=== PATIENT | male | born 1965 | race Two or more races ===

== ENCOUNTER 2022-04-12 09:02 | Emergency (ER) | payer OTHER ==
[~2022-04-12] VITALS: Ht 175.3 cm; Wt 106.6 kg
== END 2022-04-12 10:07 | disposition home or self-care (01) ==
LOC: ED 09:02
DX: S22.41XA Multiple fractures of ribs, right side, initial encounter for closed fracture (principal); V43.62XA Car passenger injured in collision with other type car in traffic accident, initial encounter
CPT/HCPCS: 71101; 99284-25

== ENCOUNTER 2023-03-01 11:10 | Observation (INO) | payer OTHER ==
[~2023-03-01] VITALS: Ht 175.3 cm; Wt 95.4 kg
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
[2023-03-01 11:58] LABS: BASOPHILS 0.3 % (0-2); EOSINOPHILS 2.7 % (0-6); HEMATOCRIT 46.8 % (35.0-50.0); HEMOGLOBIN 15.7 g/dL (12.0-18.0); LYMPHOCYTES 24.7 % (24-44); MCH 29.5 (27-36); MCHC 33.6 g/dl (30-36); MCV 87.9 fl (81-99); MONOCYTES 7.9 % (0-12); NEUTROPHILS 64.4 % (39-80); PLATELET COUNT 185 K/uL (140-440); RBC 5.32 M/ul (4.3-5.7); RDW 13.4 (10.5-15.0)
[2023-03-01 12:08] LABS: INR 1.02 (0.80-1.30)
[2023-03-01 12:10] LABS: PARTIAL THROMBOPLASTIN TIME 25.8 Sec (22.9-41.3)
[2023-03-01 12:16] LABS: ALBUMIN 3.6 g/dL (3.4-5.0); ALBUMIN/GLOBULIN RATIO 1.13 (1.1-2.4); BILIRUBIN, TOTAL 1.3 ng/dL (0.2-1.0); BUN/CREATININE RATIO 22.75 (6.0-28.6); CALCIUM 8.9 mg/dL (8.5-10.1); CREATININE, SERUM 1.45 mg/dL (0.70-1.30); PROTEIN, TOTAL 6.8 g/dL (6.4-8.2)
[2023-03-01 14:15] VITALS: BP 153/66
--- NOTE | 2023-03-01 14:15 | NUR ---
Patient transported to [facility] room 123. Pt able to transfer self to bed independently, no neuro deficits outwardly noted. Personal belongings categorized. VSS. A+O. IV flushed WNL. Tele in place. Pt on regular diet- given ice water and sandwich box. No issues noted with swallowing. Primary RN notified of admission data. Pt oriented to call light and has no needs at this time.
--- NOTE | 2023-03-01 15:02 | NUR ---
SPOKE TO PATIENT ABOUT HIS DISCHARGE PLAN. PATIENT LIVES WTH HIS MOTHER AND PLANS TO GO BACK TO HIS MOTHER'S HOUSE. PATIENT CAN DO HIS OWN ADLS. PATIENT DRIVES A CAR. PATIENT'S MOTHER PROVIDES HOUSING AND FOOD. PATIENT DOES HAVE A 26 YR. OLD DAUGHTER. PATIENT DOES NOT USE DME. PATIENT DOES NOT HAVE A PCP AND DOES NOT TAKE ANY MEDICATIONS BECAUSE OF THIS. PATIENT DID TAKE B/P MEDS IN THE PAST. ADMITTING FILLED OUT THE PAPERS TO GET [facility]. PATIENT AGREES THAT PHYSICIAN AIDE WILL TRY TO GET A PCP FOR THE PATIENT. PATIENT STATES THAT HE SMOKES A LITTLE POT TO HELP WITH PAIN ISSUES.
--- NOTE | 2023-03-01 15:12 | NUR ---
PHYSICAL THERAPY IN ROOM WORKING WITH PT.
--- NOTE | 2023-03-01 16:33 | NUR ---
PT RESTING IN BED, ORIENTED TO ROOM AND CALL LIGHT. DENIES PAIN OR DISCOMFORT AT THIS TIME. NO REQUESTS AT THIS TIME.
--- NOTE | 2023-03-01 17:16 | NUR ---
Pt's name added to CM list for new PCP and shared to the clinic staff as requested. Chart copied and scanned to Luis Enrique De Leon, Aleja Jacobsen, Unique Aguirre at the clinic to find a pcp for this pt.
--- NOTE | 2023-03-01 18:27 | NUR ---
PT RESTS IN BED. REPORTS THE NUMBNESS IN HIS RIGHT ARM AND RIGHT LEG HAS RESOLVED BUT THAT HE STILL HAS TINGLING. PT REPORTS THE TINGLING WAS FROM HIS FINGERS TO HIS FOREARM AND IS NOW ONLY IN THE TIPS OF HIS FINERS. PT REPORTS TINGLING IN HIS LEG STARTED FROM HIS TOES TO HIS CALF BUT IS NOW ONLY IN HIS TOES. PT TOLERATING HIS DIET WELL, WATCHES TV, USES CALL LIGHT APPROPRIATELY. NO REQUESTS AT THIS TIME.
[2023-03-01 18:43] VITALS: BP 181/97
--- NOTE | 2023-03-01 19:19 | NUR ---
SHIFT REPORT RECEIVED FROM KAE [place]ACH AND ONEYDA AT BEDSIDE, pt AWAKE AND RESTING IN BED. ON RA, RR EVEN AND UNLABORED. NO DISTRESS NOTED, FRESH WATER PROVIDED PER pt REQUEST. pt INDEPENDENT IN ROOM PER REPORT. TELE#[address], SHOWS SINUS RHYTHM. CALL LIGHT IN REACH, BOARD UPDATED.
--- NOTE | 2023-03-01 21:30 | NUR ---
pt AWAKE AND RESTING IN BED, ON RA. RR EVEN AND UNLABORED. NO DISTRESS NOTED, CALL LIGHT IN REACH AND pt DENEIS NEEDS OR CONCERNS.
[2023-03-01 22:00] VITALS: BP 188/99
[2023-03-01 22:42] VITALS: BP 192/106
--- NOTE | 2023-03-01 22:46 | NUR ---
pt's BP ELEVATED, RESULT OF 188/99. NO PARAMETERS OF WHEN TO GIVE PRN HYDRALAZINE. CALL MADE TO DR REID. TELEPHONE ORDER READ BACK TO GIVE THE ALREADY ORDERED HYDRALAZINE WHEN SBP > 160. OKAY TO GIVE NOW PER DR REID. pt's BUN AND CREATININE ALSO ELEVATED, DISCUSSED IF MD WANTED BOLUS OR IV FLUIDS, TELEPHONE ORDER READ BACK FOR 500 MLS BOLUS LR TO INFUSE OVER ONE HR. NIH ASSESSMENT COMPLETED, SEE NURSING INTERVENTION. pt DENIES BLURRED VISION, SPEECH CLEAR. REPORTS NUMBNESS TO RIGHT BALL OF FOOT AND RIGHT 3 MIDDLE FINGERS IMPROVED, STATING, "IT'S A LOT BETTER THAN IT WAS BEFORE". NO ADDITIONAL NEEDS, CALL LIGHT IN REACH. COMMUNITY SPECIALISTMEGAN SANTANA UPDATED.
--- NOTE | 2023-03-01 23:24 | NUR ---
ROUNDED ON pt, pt AWAKE AND RESTING IN BED. IV SITE WNL. NO NEEDS OR CONCERNS VERBALIZED BY pt, CALL LIGHT AND PERSONAL BELONGINGS IN REACH.
[2023-03-02] VITALS (8 sets, daily range): BP systolic 128–205; BP diastolic 70–125
--- NOTE | 2023-03-02 00:14 | NUR ---
ROUNDED ON pt, pt RESTING IN BED WITH EYES CLOSED. ON RA, RR EVEN AND UNLABORED. NO DISTRESS NOTED, CALL LIGHT IN REACH.
--- NOTE | 2023-03-02 02:40 | NUR ---
IN ROOM TO COLLECT VS, SBP REMAINS ELEVATED BUT TRENDING DOWN. PRN HYDRALAZINE GIVEN-SEE EMAR. IV SITE WNL, REMAINS SALINE LOCKED. NO ACUTE CHANGES TO NEURO ASSESSMENT, EQUAL STRENGTH NOTED TO BUE AND BLE. NO CAHNGES TO NUMBNESS IN RIGHT FINGERTIPS. NO ADDITIONAL NEEDS, CALL LIGHT IN REACH. pt DENIES NEED TO VOID.
--- NOTE | 2023-03-02 05:18 | NUR ---
in room to fix tele lead, lab also in room for am lab draws. no needs or concerns verbalized. call light in reach.
[2023-03-02 05:23] LABS: BASOPHILS 0.5 % (0-2); HEMATOCRIT 46.5 % (35.0-50.0); HEMOGLOBIN 15.7 g/dL (12.0-18.0); LYMPHOCYTES 26.4 % (24-44); MCH 29.1 (27-36); MCHC 33.7 g/dl (30-36); MCV 86.4 fl (81-99); MONOCYTES 7.3 % (0-12); NEUTROPHILS 62.8 % (39-80); PLATELET COUNT 187 K/uL (140-440); RBC 5.39 M/ul (4.3-5.7); RDW 13.1 (10.5-15.0)
[2023-03-02 05:42] LABS: ALBUMIN 3.4 g/dL (3.4-5.0); ALBUMIN/GLOBULIN RATIO 1.13 (1.1-2.4); ANION GAP 13.7 (7-21); BILIRUBIN, TOTAL 1.6 ng/dL (0.2-1.0); BUN/CREATININE RATIO 18.42 (6.0-28.6); CALCIUM 8.7 mg/dL (8.5-10.1); CHOLESTEROL/HDL RATIO 5.8; CREATININE, SERUM 1.14 mg/dL (0.70-1.30); MAGNESIUM 1.8 mg/dL (1.8-2.4); PHOSPHORUS, INORGANIC 2.9 mg/dL (2.5-4.9); POTASSIUM 3.7 mmol/L (3.5-5.1); PROTEIN, TOTAL 6.4 g/dL (6.4-8.2)
--- NOTE | 2023-03-02 06:43 | NUR ---
DR REID MADE AWARE OF MANUAL BP RESULT OF 198/96, AT RN STATION. VERBAL ORDER TO GIVE PRN ORDERED HYDRALAZINE AND OKAY TO GIVE ORDERED AM LISINOPRIL NOW, READ BACK TO CONFIRM. PRN HYDRALAZINE GIVEN-SEE EMAR. IV SITE WNL, SALINE LOCKED. CALL LIGHT INR EACH.
--- NOTE | 2023-03-02 07:10 | NUR ---
REPORT RECEIVED FROM MEGAN MCKEON. MEGAN MCKEON AND THIS RN IN ROOM. MEGAN MCKEON ADMINISTERING MEDICATIONS. PT DENIES ANY NEEDS FROM THIS RN AT THIS TIME. CALL LIGHT IN REACH.
--- NOTE | 2023-03-02 08:02 | EKG ---
[facility] [address] [place] [address] Signed Normal sinus rhythm Minimal voltage criteria for LVH, may be normal variant ( R in aVL ) Nonspecific ST abnormality Abnormal ECG No previous ECGs available Confirmed by GIULIA REID MD ([id number]) on 03/02/2023 8:02:10 AM Electronically Signed By: GIULIA REID 03/02/23 0802 PATIENT NAME: MARLA PÉREZ Electrocardiogram DATE OF : 61 PHYSICIAN: GIULIA REID REPORT #: [id number] REPORT IS CONFIDENTIAL AND NOT TO BE RELEASED WITHOUT AUTHORIZATION
--- NOTE | 2023-03-02 08:56 | NUR ---
IN TO ADMINISTER MEDICATIONS, SEE MAR. PT TAKES PO MEDICATIONS WITH NO ISSUES. ASSESSMENT COMPLETE. LUNG SOUNDS RHONCHI THROUGHOUT ALL LOBES. BOWEL TONES ACTIVE. PT REPORTING HEADACHE 09/03. PRN PAIN MEDICATION ADMINISTERED, SEE MAR. PT A&O TO ALL. NO ARM OR LEG DRIFT NOTED. PT REPORTS TINGLING IN RIGHT FINGERTIPS AND STATES "IT IS LIKE IF YOU WERE TO HIT IT WITH A HAMMER." PT REPORTS "I HAVE NOT NOTICED ANY TINGLING IN MY RIGHT LEG SINCE LAST NIGHT." PT DENIES ANY OTHER NEEDS AT THIS TIME. CALL LIGHT IN REACH.
--- NOTE | 2023-03-02 09:05 | NUR ---
THIS RN TALKED TO DR. REID REGARDING PTs BP OF 204/120. PER DR. REID GIVE 0.1 OF CLONIDINE PO NOW. VERIFIED WITH READBACK.
--- NOTE | 2023-03-02 09:40 | NUR ---
PT WAS ON PHONE. DID NOT INTERRUPT. SAID SILENT PRAYER FOR HEALING.
--- NOTE | 2023-03-02 10:23 | NUR ---
IN TO ROUND ON PT. PT UP IN BED. BP COMPLETE. I&Os COMPLETE. PT REPORTING PAIN IS "GONE." PT DENIES ANY OTHER NEEDS AT THIS TIME. CALL LIGHT IN REACH.
--- NOTE | 2023-03-02 10:28 | NUR ---
THIS RN CALLED DR. REID REGARDING PTs BP OF 205/[address] REID GIVE COREG 25MG PO BID AND GIVE FIRST DOSE NOW. VERIFIED WITH READBACK.
--- NOTE | 2023-03-02 10:36 | NUR ---
IN TO ADMINISTER MEDICATION, SEE MAR. PT TAKES PO MEDICATION WITH NO ISSUES. EDUCATION PROVIDED REGARDING MEDICATION. PT DENIES ANY OTHER NEEDS AT THIS TIME. CALL LIGHT IN REACH.
--- NOTE | 2023-03-02 11:11 | NUR ---
SPOKE TO PATIENT ABOUT THE DISCHARGE PLAN. CASE MANAGEMENT IS STILL WORKING ON GETTING A PCP FOR THE PATIENT. THE [facility] HAS BEEN SENT A REQUEST FOR THIS SERVICE. THE CLINIC WILL CALL THE PATIENT.
--- NOTE | 2023-03-02 11:43 | NUR ---
THIS RN TALKED TO DR. REID REGARDING PTs BP OF 165/99. PER DR. REID THAT IS "GOOD." NO NEW ORDERS AT THIS TIME.
--- NOTE | 2023-03-02 12:11 | NUR ---
IN TO COMPLETE MRI FORM WITH PT. PT DENIES ANY OTHER NEEDS AT THIS TIME. CALL LIGHT IN REACH.
--- NOTE | 2023-03-02 12:44 | NUR ---
IN TO ROUND ON PT AND UPDATE PT ON MRI. INFORMED PT THAT MRI WILL NOT HAPPEN UNTIL TOMORROW. DIETARY CALLED TO BRING PT A LUNCH TRAY. WATER PROVIDED FOR PT. PT DENIES ANY OTHER NEEDS AT THIS TIME. CALL LIGHT IN REACH.
--- NOTE | 2023-03-02 15:33 | NUR ---
IN TO ROUND ON PT. PT RESTING IN BED ON RIGHT SIDE. PT AWAKENS WHEN ADDRESSED. ASSESSMENT COMPLETE. LUNG SOUNDS RHONCHI IN RUL AND RLL. CLEAR IN JANELL AND LLL. BOWEL TONES ACTIVE. PT DENIES PAIN AT THIS TIME. PT A&O TO ALL. PT DENIES ANY NEEDS AT THIS TIME. CALL LIGHT IN REACH.
--- NOTE | 2023-03-02 17:10 | NUR ---
IN TO ROUND ON PT. PT LAYING IN BED ON LEFT SIDE, SEMI-FOWLERS. EYES CLOSED. RR EVEN AND UNLABORED. NO NEEDS IDENTIFIED AT THIS TIME. CALL LIGHT IN REACH.
--- NOTE | 2023-03-02 18:03 | NUR ---
IN TO ADMINISTER PRN PAIN MEDICATION PT REPORTING HEADACHE PAIN /. PRN PAIN MEDICAITON ADMINISTERED, SEE MAR. URINAL EMPTIED. URINE NOTED TO BE CONCENTRATED. INFORMED PT WE WILL HAVE TO BLADDERSCAN PT PT HAS NOT HAD MUCH URINE OUTPUT DURING THIS SHIFT. PT AGREEABLE. PT DENIES ANY OTHER NEEDS AT THIS TIME. CALL LIGHT IN REACH.
--- NOTE | 2023-03-02 18:37 | NUR ---
THIS RN TALKED TO DR. REID REGARDING PTs URINE OUTPUT. PER DR. REID GIVE PT 1L BOLUS OF NS NOW. VERIFIED WITH READBACK.
--- NOTE | 2023-03-02 18:52 | NUR ---
IN TO ADMINISTER BOLUS, SEE MAR. IV FLUSHES WNL. PT A&O TO ALL. PT DENIES NUMBNESS AND TINGLING AT THIS TIME. IS PROVIDED AND EDUCATION PROVIDED. PT USES IS X3. PT DENIES ANY NEEDS AT THIS TIME. CALL LIGHT IN REACH.
--- NOTE | 2023-03-02 19:07 | NUR ---
SHIFT REPORT RECEIVED FROM DAYSHIFT MEGAN AMBROSE AT BEDSIDE, pt AWAKE AND RESTING IN BED, IV FLUIDS INFUSING DIRECTED-IV SITE WNL. pt DENEIS NEEDS OR CONCERNS, CALL LIGHT IN REACH.
--- NOTE | 2023-03-02 19:55 | NUR ---
IV PUMP ALARMING, IV BOLUS COMPLETE. PUMP CLEARED, IV SITE SALINE LOCKED. WARM BLANKET PROVIDED. CALL LIGHT IN REACH.
--- NOTE | 2023-03-02 20:40 | NUR ---
assessment complete, scheduled medication given-see emar. vss, bp improving, tele#[address] apical hr 60. current iv to be dc'd d/t early signs of infiltration. primer charger to place new iv. cms intact, pt reports numbness to right fingertips/ball of right foot resolved earlier on dayshift. pt a/ox4, independent in room. no additional needs or concerns, call light in reach. pt denies need to void, instructed to use call light once he voids, pt verbalizes understanding.
--- NOTE | 2023-03-02 21:16 | NUR ---
PATIENTS IV DC'D IN LEFT AC FOR INFILTRATION. NE IV PLACED IN RFA. PATIENT TOLERATED ACITVITY WELL. PATIENTS IV SL PER ORDER. PATIENT DENIES ANY NEEDS. CALL LIGHT IN REACH.
--- NOTE | 2023-03-02 22:14 | NUR ---
pt AWAKE AND RESTING IN BED, WATCHING TV. NO DISTRESS NOTED. CALL LIGHT IN REACH, ON RA. RR EVEN AND UNLABORED. TELE#[address], HR 60-SINUS RHYTHM. NO NEEDS OR CONCERNS VERBALIZED WHEN ASKED, CALL LIGHT IN REACH.
--- NOTE | 2023-03-02 23:25 | NUR ---
pt awake and resting in bed, preparing to go to bed. urinal emptied, 150mls output noted. pt deneis needs or concerns. call light in reach.
[2023-03-03] VITALS (7 sets, daily range): BP systolic 122–186; BP diastolic 62–93
--- NOTE | 2023-03-03 01:29 | NUR ---
IN ROOM TO COLLECT VS, VSS. BP CONTINUES TO IMPROVE AND REMAINS WNL. TELE#[address], HR 58-SINUS JUANPABLO. NO ACUTE CHANGES W/ ASSESSMENT. pt DROWSY, AWOKE EASILY TO VOICE. CMS REMAINS INTACT. IV SITE WNL, SALINE LOCKED.
--- NOTE | 2023-03-03 03:01 | NUR ---
pt DENIES NEED TO VOID, HAS ONLY VOIDED 100MLS SINCE BOLUS THAT FINISHED EARLIER IN SHIFT. pt BLADDER SCANNED FOR 79MLS, pt NOW OOB AND ATTEMTPTING TO VOID. WILL MONITOR. pt MADE NPO AT THIS TIME, PER SHIFT REPORT- pt HAS TO BE NPO FOR A MINIMIUM OF 4HRS BEFORE MRI AND PER SHIFT REPORT MRI IS TO BE DONE IN THE MORNING EITHER AT 1000 OR 1300 DEPENDING ON IMAGING SCHEDULE.
--- NOTE | 2023-03-03 05:55 | NUR ---
dr norton made aware of pt's urine output for the shift-250mls and most recent bladder scan of 73mls. no crackles noted w/ lung auscultation, no edema noted. pt yajaira sob. telephone order read back for am cbc, cmp and 1 liter ns bolus to infuse over 4hrs. clinic charge nursearlette amaro also updated.
--- NOTE | 2023-03-03 06:10 | NUR ---
iv fluid bolus infusing as directed, iv site wnl. pt up and voided another 100mls. call light in reach. pt a/ox4, cms remains intact.
[2023-03-03 06:16] LABS: BASOPHILS 0.6 % (0-2); EOSINOPHILS 2.8 % (0-6); HEMATOCRIT 43.9 % (35.0-50.0); HEMOGLOBIN 14.6 g/dL (12.0-18.0); LYMPHOCYTES 30.4 % (24-44); MCH 29.3 (27-36); MCHC 33.2 g/dl (30-36); MCV 88.1 fl (81-99); NEUTROPHILS 58.2 % (39-80); PLATELET COUNT 178 K/uL (140-440); RBC 4.98 M/ul (4.3-5.7); RDW 13.6 (10.5-15.0)
[2023-03-03 06:29] LABS: ALBUMIN 3.1 g/dL (3.4-5.0); ALBUMIN/GLOBULIN RATIO 1.11 (1.1-2.4); ANION GAP 12.8 (7-21); BILIRUBIN, TOTAL 1.5 ng/dL (0.2-1.0); BUN/CREATININE RATIO 21.42 (6.0-28.6); CALCIUM 8.5 mg/dL (8.5-10.1); CREATININE, SERUM 1.4 mg/dL (0.70-1.30); POTASSIUM 3.8 mmol/L (3.5-5.1); PROTEIN, TOTAL 5.9 g/dL (6.4-8.2)
--- NOTE | 2023-03-03 07:20 | NUR ---
REPORT REVEIVED FROM MEGAN MCKEON. PT RESPONDS WHEN ADDRESSED. PT DENIES ANY NEEDS AT THIS TIME. CALL LIGHT IN REACH.
--- NOTE | 2023-03-03 08:01 | NUR ---
New notes from chart faxed to Physician clinic. Asked if they have had success finding a pcp for this pt.
--- NOTE | 2023-03-03 08:01 | NUR ---
IN TO ADMINISTER MEDICATION WITH SIP OF WATER. PT TAKES PO MEDICATIONS WITH NO ISSUES. ASSESSMENT COMPLETE. PT DENIES PAIN AT THIS TIME. LUNG SOUNDS RHONCHI THROUGHOUT ALL LOBES THAT CLEAR WITH COUGH. BOWEL TONES ACTIVE. NO ARM OR LEG DRIFT NOTED. PT A&O TO ALL. PT DENIES NUMBNESS OR TINGLING ANY ALL EXTREMITIES. IV FLUSHES WNL AND BLOOD RETURN NOTED. IV INFUSING WNL. PT DENIES ANY OTHER NEEDS AT THIS TIME. CALL LIGHT IN REACH.
--- NOTE | 2023-03-03 10:08 | NUR ---
PT OUT OF ROOM FOR MRI.
--- NOTE | 2023-03-03 10:28 | NUR ---
PT BACK FROM MRI. INFORMED PT WE NEED A CLEAN CATCH UA. EDUCATION PROVIDED. PT UP TO RESTROOM TO ATTEMPT TO VOID. PT INFORMED TO USE CALL LIGHT WHEN FINISHED. PT VERBALIZES UNDERSTANDING. PT DENIES ANY OTHER NEEDS AT THIS TIME.
--- NOTE | 2023-03-03 10:40 | NUR ---
IN TO ANSWER CALL LIGHT. PT UA OBTAINED. PT PLACED BACK ON TELE. IV FLUIDS RESUMED. WATER PROVIDED. PT REPORTING HEADACHE 10/04. PRN PAIN MEDICATION ADMINISTERED, SEE AUG. PT TAKES PO MEDICATION WITH NO ISSUES. PT DENIES ANY OTHER NEEDS AT THIS TIME. CALL LIGHT IN REACH.
[2023-03-03 10:57] LABS: BILIRUBIN, URINE NEGATIVE (negative); BLOOD/HGB, URINE NEGATIVE (Negative); KETONE, URINE NEGATIVE (Negative); LEUK ESTERASE, URINE NEGATIVE (negative); NITRITE, URINE NEGATIVE (negative); PH, URINE 5.5 (5-7)
[2023-03-03 11:02] LABS: BACTERIA, URINE NONE SEEN /hpf (negative); CASTS, URINE NONE SEEN \\lpf; CRYSTALS, URINE NONE SEEN (0-1+); EPITHELIAL CELLS, URINE 0 /lpf (0-1+); RED BLOOD CELLS, URINE 0-1 /hpf (0-5); WHITE BLOOD CELLS, URINE 0-1 /HPF (0-5)
[2023-03-03 11:03] LABS: COLLECTION TYPE, URINE CLEAN CATCH; REFLEX CULTURE, URINE No (No)
--- NOTE | 2023-03-03 11:35 | NUR ---
IN IV PUMP ALARMING, IV BOLUS COMPLETE. PT SL AT THIS TIME. PT DENIES ANY OTHER NEEDS AT THIS TIME. CALL LIGHT IN REACH.
--- NOTE | 2023-03-03 12:19 | NUR ---
IN TO ROUND ON PT. PT UP IN BED EATING LUNCH. PT REPORTING HEADACH PAIN 07/06. ICE WATER PROVIDED. PT DENIES ANY OTHER NEEDS AT THIS TIME. CALL LIGHT IN REACH.
--- NOTE | 2023-03-03 12:41 | NUR ---
CALL FROM IMAGING REGARDING IMAGING REPORT NOW AVAILABLE. DR. REID INFORMED IMAGING REPORT IS AVAILABLE.
--- NOTE | 2023-03-03 15:00 | NUR ---
IN TO ROUND ON PT. PT SITTING UP IN BED. PT DENIES PAIN AT THIS TIME. PT DENIES ANY NEEDS AT THIS TIME. PT STATES "I DON'T THINK SHE DID MY BLOOD PRESSURE THIS LAST TIME AROUND." VITALS COMPLETE. PT DENIES ANY OTHER NEEDS AT THIS TIME. COMMUNITY RESOURCES IN ROOM TO TALK WITH PT.
[2023-03-03] MEDS ORDERED: CARVEDILOL25 MG PO (15:13)
[2023-03-03] MEDS ORDERED: LO-DOSE ASPIRIN81 MG PO (15:13)
[2023-03-03] MEDS ORDERED: CLOPIDOGREL75 MG PO (15:13)
--- NOTE | 2023-03-03 15:30 | NUR ---
THIS RN TALKED TO DR. REID REGARDING PTs BP OF 186/80. MD AWARE. NO NEW ORDERS AT THIS TIME.
--- NOTE | 2023-03-03 16:47 | NUR ---
IN TO ROUND ON PT. PT UP IN BED. PT RESPONDS WHEN ADDRESSED. ASSESSMENT COMPLETE. LUNG SOUNDS CLEAR. BOWEL TONES ACTIVE. PT DENIES ANY PAIN AT THIS TIME. WATER PROVIDED. URINAL EMPTIED. PT DENIES ANY OTHER NEEDS AT THIS TIME. CALL LIGHT IN REACH.
--- NOTE | 2023-03-03 19:06 | NUR ---
SHIFT REPORT RECEIVED FROM DAYSHIFT MEGAN AMBROSE AT BEDSIDE. pt AWAKE AND RESTING IN BED, EAGER FOR DISCHARGE. MD WORKING ON DISCHARGE PAPERWORK. pt ON RA, RR EVEN AND UNLABORED. NO DISTRESS NOTED. CALL LIGHT IN REACH AND MOTHER IN ROOM.
--- NOTE | 2023-03-03 19:16 | NUR ---
THIS RN CALLED DR. REID. TO INFORM HIM THAT DR. MANZANO HAS SEEN PT. ASKED DR. REID ABOUT ADMINISTERING PRN HYDRALAZINE. PER DR. REID "GO AHEAD AND GIVE IT TO HIM BEFORE HE LEAVE."
[2023-03-03] MEDS ORDERED: LISINOPRIL10 MG PO (19:21)
[2023-03-03] MEDS ORDERED: CRESTOR5 MG PO (19:22)
== END 2023-03-03 19:59 | disposition home or self-care (01) ==
LOC: ED 11:10 → MS 11:12
PROVIDERS: Family Medicine; ADMIT Internal Medicine; ATTEND Internal Medicine
DX: I63.9 Cerebral infarction, unspecified (principal); I10 Essential (primary) hypertension; N28.89 Other specified disorders of kidney and ureter; N17.9 Acute kidney failure, unspecified; Z72.0 Tobacco use; Z79.82 Long term (current) use of aspirin
CPT/HCPCS: 36415; 51798; 70450; 70496; 70498; 74183; 76770; 80053; 80061; 81001; 83036; 83735; 84100; 84484; 85025; 85610; 85730; 93005; 93010; 93306; 96361; 96375; 96376; 97161; 97165; 99285-25; 99406; A9577; G0378; J0360; J7030; J7120; Q9967